=== PATIENT | male | born 1970 | race Caucasian/White ===

== ENCOUNTER 2017-05-09 21:07 | Emergency (ER) | payer MEDICAID ==
[~2017-05-09] VITALS: Ht 175.3 cm; Wt 74.8 kg
[2017-05-09 21:23] LABS: LYMPH # 3.1 K/mm3 (0.7-4.5); LYMPH % 33.4 % (10-50)
[2017-05-09 21:26] LABS: HEMOGLOBIN 18.2 g/dL (14.1-18.0)
--- NOTE | 2017-05-09 21:28 | Emergency Room Report ---
History of Present Illness Time Seen by [id number] Presenting Problem in Triage Pt arrived:Stretcher Presenting Problem:BYSTANDERS PULLED UP TO ER WITH UNRESPONSIVE , NOT BREATHING PT CYANOTIC BYSTANDERS SAID HE HAS SNORTED HEROIN Onset of symptoms date/time:05/09/17 or onset unknown for: Treatment Prior to Arrival: INFORMATION SECURITY SPECIALIST Provided by: Sepsis Risk Assessment: Temp: 96.9 B/P: MAP: 87 Pulse: 68 Resp: 0 Recent fever? N Clinical Suspician of Infection? N Mental Status: 3 - Acutely Altered Sepsis Risk:Low Sepsis Risk Have you (or family members/close friends) recently traveled outside the [place]? N If Yes, where/when: Have you had exposure to infectious disease within the past month? N TB? Other? Specify: Source patient, RN notes reviewed, old records Exam Limitations clinical condition Comment pt was brought to ed by private vehicle with dec loc and cyanosis- over the last few minutes Cardiac Chest Pain Chest pain indicative of cardiac No Timing/Duration this evening Severity moderate ALLERGIES Coded Allergies: No Known Allergies (05/09/17) History Medical History General CAD? No Angina: No [place]: No Hypertension? No Hyperlipidemia? No CHF? No DVT? No PE? No COPD? No Asthma? No Anemia? No GERD? No Gastric ulcers? No GI Bleed? No Hernia? No Thyroid Problems? No Hypothyroidism? No CVA? No Seizures? No Diabetes? No Renal Insuffiency? No End Stage Renal Disease? No UTI? No Stones? No BPH? No GB Disease: No Nephritic Syndrome? No Asplenia? No Hepatitis? No Sickle Cell Disease? No Arthritis? No Migraines? No Cataracts? No Glaucoma? No MRSA? No HIV? No TB? No Anxiety? No Depression? No Cancer? No Site: N More? No Immunization Hx DT/Tetanus Unknown Surgical Hx Previous Surgery?Y APPENDECTOMY Social History Smoking Hx Smoker: Current Every Day Smoker Tobacco: Yes Type Cigarettes Alcohol Alcohol: Yes Drugs heroin Additionial History Additional History after narcan - pt admitted to heroin nasal use Review of Systems All Other Systems Reviewed and Negative Constitutional denies fever Eyes denies drainage ENT denies: ear discharge, epistaxis, throat pain. Respiratory denies cough, denies shortness of breath, denies wheezing Cardiovascular denies chest pain, denies palpitations, denies syncope Gastrointestinal denies abdominal pain, denies diarrhea, denies vomiting Genitourinary denies: dysuria, frequency, hesitancy, hematuria. Musculoskeletal denies back pain, denies joint pain, denies joint swelling, denies neck pain Skin denies rash Psychiatric/Neurological see HPI, denies headache, denies seizure, other Comment ros obtained after narcan Physical Exam Vital Signs Vital Signs Date Time Temp Pulse Resp B/P Pulse O2 O2 Flow FiO2 Ox Delivery Rate 05/10 0022 69 20 112/74 90 2 05/10 0013 74 20 114/75 90 2 05/09 2359 69 20 124/73 91 2 05/09 2345 66 20 124/73 90 2 05/09 2333 67 20 116/83 93 2 05/09 2245 81 20 118/71 94 2 05/09 2226 96.9 73 20 116/74 94 05/09 2145 63 20 107/74 98 15 05/09 2131 96.9 62 20 108/55 98 05/09 2110 96.9 68 0 0 05/09 2107 98 20 120/70 98 15 - WBC >12,000 or <4,000 or 10% bands? 2 or more SIRS Criteria Met? B/P:116/74 MAP:87 Creatinine >2.0? UA output<0.5ml/kg/hr for 2 hrs? Platelet count >100,000? Lactate >2.0mmol/1? INR >1.2 or PTT > than 60 sec? Evidence of Organ Dysfunction? Provider documented clinical suspician of infection? N Sepsis Criteria Count: 1 Sepsis Risk: Low Sepsis Risk General Appearance no apparent distress Eye Exam Comment pinpt pupils Ear, Nose, Throat no evid of tongue biting Neck non-tender Respiratory Status No: respiratory distress. Lung Sounds bilateral: decreased breath sounds. Cardiovascular regular rate/rhythm, no gallop, no JVD, no murmur, no rub Peripheral Pulses Pulses normal Yes Gastrointestinal soft Back normal inspection Extremities normal inspection Strength 4 Upper Ext (L), 4 Upper Ext (R), 4 Lower Ext (L), 4 Lower Ext (R) Neurologic obtunded on arrival and after narcan nl rom and no focal changes Reflexes Reflexes normal No Mental status altered mental status Skin intact Comments pt with heroin use and responded to narcan Medical Decision Making LABS/Meds/Orders Pt receiving controlled substance in ED? No Results/Orders Laboratory Tests 05/09/172124: Opiates Screen POSITIVE H, Urine Methadone Screen NEGATIVE, Barbiturates NEGATIVE, Phencyclidine Screen NEGATIVE, Amphetamines Screen NEGATIVE, Benzodiazepines Screen NEGATIVE, Cocaine Screen NEGATIVE, Marijuana (THC) Screen POSITIVE H, Urine Color YELLOW, Urine Appearance CLEAR, Urine pH 5.5, Ur Specific [place] 1.020, Urine Protein NEGATIVE, Urine Ketones NEGATIVE, Urine Blood TRACE-INTACT, Urine Nitrate NEGATIVE, Urine Bilirubin NEGATIVE, Urine Urobilinogen 0.2, Ur Leukocyte Esterase NEGATIVE, Urine RBC OCC, Amorphous Sediment TRACE, Urine Glucose 3+ H 05/09/172053: Sodium 140, Potassium 3.3 L, Chloride 103, Carbon Dioxide 24, BUN 8, Creatinine 1.3, Estimated Creat Clear 76, Estimated GFR (MDRD) 60, Glucose 340 H, Calcium 8.5, Total Bilirubin 0.3, AST 43 H, ALT 34, Alkaline Phosphatase 125 H, Creatine Kinase 136, CK-MB (CK-2) Rel Index 0.4, CK and CKMB Interp < 0.5, Troponin I < 0.02, Total Protein 7.4, Albumin 3.4, Globulin 4.0 H, Albumin/ Globulin Ratio 0.9 L, WBC 9.1, RBC 5.81, Hgb 18.2 *H, Hct 58.1 H, MCV 100.1 H , RDW 12.6, Plt Count 185, MPV 8.7, Gran % 58.7, Gran # 5.3, Lymphocytes % 33.4, Monocytes % 3.9, Eosinophils % 2.9, Basophils % 1.0, Lymphocytes # 3.1, Monocytes # 0.4, Eosinophils # 0.3, Basophils # 0.1, PUBS MCHC 31.4 L, MCH 31.4 H, Acetaminophen 0 L Current Medication Orders Sig/Dianelys Start time Last Medication Dose Route Stop Time Status Admin Naloxone HCl 0 .STK-MED ONE 05/09 2159 DC .ROUTE Naloxone HCl 2 MG ONCE ONE 05/09 2145 DC 05/09 IV 05/09 Naloxone HCl 2 MG 05/09 2145 CAN IV Naloxone HCl 2 MG ONCE ONE 05/09 2145 DC 05/09 IV 05/09 Naloxone HCl 2 MG ONCE ONE 05/09 2145 DC 05/09 IV 05/09 Sodium Chloride 1,000 ML .Q1H1M 05/09 2145 DC 05/09 IV 05/09 2245 2148 Sodium Chloride 10 ML PRN PRN 05/09 2145 AC IV 05/10 2139 Naloxone HCl 4 MG 05/09 2130 CAN IV Orders Procedure Date/time Status URINALYSIS/COMPLETE 05/09 2152 Complete IV SALINE LOCK 05/09 2113 Active OXYGEN PER NURSE 05/09 2112 Active DRUG ABUSE SCREEN (10) 05/09 2112 Complete CBC WITH AUTO DIFF 05/09 2112 Complete CARDIAC ENZYMES 05/09 2112 Complete CHEM 12 PROFILE 05/09 2112 Complete Acetaminophen 05/09 2112 Complete XRAY/CT/US XRAY/CT/US XRAY chest XR interpretation by reviewed by me Xray Results abnormal (inc marking rt base ) Departure Departure Time of Disposition 26 Disposition DC Home or Self Care(routine) Clinical Impression Primary Impression: Heroin abuse Condition STABLE Patient Instructions DI for Drug Overdose in Adults Additional Instructions please see pcp for follow up Discharge Counseling Counseled pt/family regarding diagnosis, test results, follow up needs ED Critical Care Critical Care No at 0028
[2017-05-09 21:41] LABS: AMPHETAMINES/METAMPHETAMINES NEGATIVE ng/mL (<1000)
[2017-05-09 21:49] LABS: BUN 8 mg/dL (7-18)
[2017-05-09 21:50] LABS: GFR (ESTIMATED) 60 ML/MIN (>60)
[2017-05-09 21:56] LABS: URINE BILIRUBIN - DIPSTICK NEGATIVE (NEG); URINE BLOOD TRACE-INTACT (NEG)
--- NOTE | 2017-05-09 23:55 | RADIOLOGY REPORT PS360 ---
CHEST-PORTABLE HISTORY: CHEST PAIN. Drug overdose. Diminished respiration Patient Age: 46 years: Male Ordering Physician: Nava Ybarra MD TECHNIQUE: AP portable upright chest COMPARISON : None available FINDINGS . There is mild accentuation markings at the right infrahilar region and medial right base which likely reflects atelectasis. Doubt but cannot exclude early infiltrate.Extrinsic Overlying fabric adds to the density towards the lower right chest as well Mild prominence of vascularity. Suggestion underlying pulmonary chronic changes a developing COPD suspected. The heart is normal in size. Kelsie and mediastinal structures otherwise unremarkable. No pneumothorax. No pleural effusion. IMPRESSION: No significant acute findings. Slight accentuation markings right infrahilar region most likely reflecting atelectasis;. & possibly overlapping y extrinsic density. Doubt early infiltrate. If respiratory symptoms persist consider follow-up. Mild chronic lung changes.
[2017-05-10 01:14] VITALS: BP 118/70
== END 2017-05-10 01:14 | disposition home or self-care (01) ==
LOC: ER 21:07
PROVIDERS: Emergency Medicine
DX: F11.10 Opioid abuse, uncomplicated (principal); F17.210 Nicotine dependence, cigarettes, uncomplicated
CPT/HCPCS: J2310